=== PATIENT | male | born 1955 | race Caucasian/White ===

== ENCOUNTER 2023-12-31 07:13 | Day surgery (SDC) | payer OTHER, MEDICARE ==
[2023-12-31] MEDS: Sodium Chloride 0.9% 1,000 ML IV SCH (07:39)
[2023-12-31] MEDS ORDERED: Propofol 200 MG/20 ML SDV ONE (08:57)
[2023-12-31] MEDS ORDERED: fentaNYL 50 MCG/ML SDV ONE (08:58)
[2023-12-31] MEDS ORDERED: Midazolam 1 MG/ML 2 ML SDV ONE (08:58)
== END 2023-12-31 10:30 | disposition home or self-care (01) ==
LOC: JP.SDS 07:13
PROVIDERS: ATTEND Surgery
DX: Z12.11 Encounter for screening for malignant neoplasm of colon (principal); D12.2 Benign neoplasm of ascending colon; D12.4 Benign neoplasm of descending colon; D12.8 Benign neoplasm of rectum; I10 Essential (primary) hypertension; K21.9 Gastro-esophageal reflux disease without esophagitis; Z86.010 Personal history of colon polyps
CPT/HCPCS: 45380; 45385; 88305; J2250; J2704; J3010; J7030; 00811-QZ